=== PATIENT | female | born 1985 | race Caucasian/White ===

== ENCOUNTER 2017-09-30 16:25 | Inpatient (IN) ==
[2017-09-30] MEDS ORDERED: Naloxone 0.4 MG/ML INJ IVP PRN (19:38)
[2017-09-30 20:18] LABS: Hematocrit 21.3 % (35.3-44.9)
[2017-09-30] MEDS: 0.9 % Sodium Chloride 1,000 ML IVC SCH (23:03)
[2017-09-30 23:18] LABS: Protein/Creatinine Ratio,Urine 0.49 mg/mg (0.00-0.20)
[2017-10-01 02:16] LABS: Basophils % 0.2 %; Calcium 7.6 mg/dL (8.6-10.3); Eosinophils # 0.2 K/mcL (0.0-0.6); Eosinophils % 3.7 %; Hematocrit 20.8 % (35.3-44.9); Hemoglobin 6.6 g/dL (11.5-15.4); Immature Granulocytes % 0.5 % (0-4); Lymphocytes # 1.2 K/mcL (0.6-4.6); Lymphocytes % 28.5 %; Mean Corpuscular HGB Conc 31.7 g/dL (31.6-35.5); Mean Corpuscular Hemoglobin 25.2 pg (28.0-33.3); Mean Corpuscular Volume 79.4 fL (83.0-100.0); Monocytes # 0.3 K/mcL (0.0-1.3); Monocytes % 7.6 %; Neutrophils # 2.4 K/mcL (1.6-8.9); Platelet Count 190 K/mcL (140-400); Potassium 3.9 mEq/L (3.5-5.1); Red Blood Count 2.62 M/mcL (3.82-4.97); Red Cell Distribution Width 18.8 % (11.5-14.5); Segmented Neutrophils % 59.5 %
--- NOTE | 2017-10-01 03:07 | Event Note ---
Date of Encounter: 10/01/17 Time of Encounter: 03:05 Received critical report of the patient's Hgb of 6.6. No overt signs of hemorrhage. It is seen that she has had a gradual downward trend in her Hgb. Type and screen is ordered and consent obtained for the need for blood transfusion and she expressed willingness to proceed with these measures. She remains clinically and hemodynamically stable.
[2017-10-01] MEDS ORDERED: 0.9 % Sodium Chloride 250 ML ONE ×2 (04:42→11:34)
[2017-10-01] MEDS: *HR* Heparin 5,000 UNIT/ML VIAL SQ SCH ×2 (05:03→17:30)
--- NOTE | 2017-10-01 08:35 | Nephrology Consult Note ---
Date of Encounter: 10/01/17 Time of Encounter: 08:34 Assessment and Plan (1) Acute kidney injury Current Visit: Yes Status: Acute Patient with acute kidney injury of unclear etiology. Her clinical history is not suggestive of dehydration as she states she has been eating and drinking well and denies nausea, vomiting, or diarrhea.. Nonetheless, I recommend continue with the IV fluid for right now. Her workup has been ordered. This will include an evaluation for active lupus. A renal ultrasound has also been ordered. If patient's renal function does not improve pretty soon, she may need a renal biopsy. We will also check CKs. (2) Anemia Current Visit: Yes Status: Acute Patient with iron and vitamin B12 deficiency. She is status post transfusion. She may need intravenous iron. Recommend starting vitamin B-12 as well. We will checks for signs of hemolysis given her history of lupus. Qualifiers: Anemia type: iron deficiency Iron deficiency anemia type: unspecified iron deficiency Qualified Code(s): D50.9 - Iron deficiency anemia, unspecified (3) Elevated troponin Current Visit: Yes Status: Acute Unclear etiology. This is a new finding, but not associated with chest pain, or dyspnea. With a history of lupus I agree with an echocardiogram. If troponin elevates consider a cardiology consult. (4) Lupus Current Visit: Yes Status: Chronic Patient is a history of lupus and states her last flare was several months ago. She denies current rashes or arthralgias. She does give a history of headaches that have been occurring frequently recently. I will check for lupus activity. Qualifiers: Lupus erythematosus form: unspecified Qualified Code(s): L93.0 - Discoid lupus erythematosus History of Present Illness - Reason for Consult Consult date: 10/01/17 Acute Kidney Injury - Chief Complaint oxana - History of Present Illness Ms. Elena is a 31-year-old woman with a history of systemic lupus erythematosus. She presents after she found that she had accelerated hypertension at home. Upon admission she was found to have significant anemia along with acute kidney injury. She states she was asymptomatic with the exception of a headache at home. For the headache she has been taken ibuprofen 200 mg twice a day 3 times a week for the last 3-4 months. She denies nausea, vomiting, diarrhea. She also denies chest pain or dyspnea. She denies a history of renal involvement with her lupus. She states she gets infrequent flares that are usually manifested as a rash. She reports her last rash with a few months ago. She reports her [facility] and confirmed at [facility]. Past Med Surg Social Fam HX - Past Medical History Medical history: fibromyalgia, hypertension, migraine, other Additional medical history: lupus Psychiatric history: no psych history - Past Surgical History Surgical History: other Additional surgical history: pericardial effusion - Social History Smoking Status: Current every day smoker Packs per day: 1 Smokeless Tobacco Status: No Alcohol use: none Drug use: none - Family History Mother Living Status: Still Living Hx Family Endocrine Disorder: Yes (diabetes) Medications and Allergies predniSONE [PredniSONE] 10 mg PO BID #60 tablet 06/03/16 [Rx] Hydroxychloroquine [Plaquenuil] 200 mg PO BID 02/23/17 [History] Losartan/Hydrochlorothiazide [Losartan-Hctz 100-12.5 mg Tab] 1 tab PO DAILY 05/15 [History] amLODIPine [Norvasc] 5 mg PO DAILY 09/30/17 [History] 3 Allergy/AdvReac Type Severity Reaction Status Date / Time propoxyphene Allergy Hives Verified 09/30/17 14:34 [From Rosamaria-Gonzalo] Review of Systems All Systems: reviewed and no additional remarkable complaints except as stated ( As documented by history of present illness) Exam - Vital Signs Vital signs: Initial Vital Signs Temp Pulse Resp BP Pulse Ox 98.0 F 76 18 94/61 97 09/30/17 18:09 09/30/17 18:09 09/30/17 18:09 09/30/17 18:09 09/30/17 18:09 Vital Signs - Last 8 Hours Temp Pulse Resp BP Pulse Ox 10/01/17 07:44 98.4 F 66 14 132/88 10/01/17 07:20 98.6 F 68 16 130/87 99 10/01/17 05:17 98.6 F 68 14 136/86 10/01/17 05:16 98.6 F 68 14 136/86 98 10/01/17 04:48 98.5 F 74 16 116/79 10/01/17 04:39 98.5 F 74 16 116/79 98 Intake and Output 09/30/17 10/01/17 10/01/17 23:59 07:59 15:59 Intake Total 890 / 890 Output Total 120 / 120 Balance -120 / -120 890 / 890 Intake: IV Fluids 550 / 550 0.9 % Sodium Chloride 1,000 ML 550 / 550 @ 100 mls/hr IVC .Q10H SENDY Rx#: [id number] Blood Product 340 / 340 Rbcs Leuko Poor As-3 2nd Unit 340 / 340 [id number] Output: Urine 120 / 120 Other: # Voids 2 Weight 78.471 kg 79.4 kg Patient Weight 10/01/17 23:59 Weight 79.4 kg - General Appearance General appearance: well-developed, well-nourished EENT: ATNC Neck: supple Respiratory: clear (She initially has fine basilar crackles that clear with repeated inspiration.) Cardiology: no edema, regular rate, regular rhythm Gastrointestinal: normoactive bowel sounds, no tenderness Integumentary: no rash, warm and dry Neurologic: alert and oriented x3 Musculoskeletal: no cyanosis Psychiatric: mood/affect appropriate Results - Lab Results 10/01/17 08:56 10/01/17 01:39 Most recent lab results Calcium 7.6 mg/dL (8.6-10.3) L 10/01/17 01:39 Urine Creatinine 98 mg/dL 09/30/17 22:31 Ur Total Protein 24 Hr TNP 09/30/17 22:31 Urine Total Protein 48 mg/dL (1-14) H 09/30/17 22:31 Consult Discharge Plan - Plan Referrals: Christiano Esposito, [employer] [Primary Care Provider] -
[2017-10-01 09:37] LABS: Basophils % 0.2 %; Eosinophils # 0.2 K/mcL (0.0-0.6); Eosinophils % 2.9 %; Hematocrit 25.5 % (35.3-44.9); Hemoglobin 8.1 g/dL (11.5-15.4); Immature Granulocytes % 0.4 % (0-4); Lymphocytes # 1.1 K/mcL (0.6-4.6); Lymphocytes % 21.3 %; Mean Corpuscular HGB Conc 31.8 g/dL (31.6-35.5); Mean Corpuscular Hemoglobin 25.5 pg (28.0-33.3); Mean Corpuscular Volume 80.2 fL (83.0-100.0); Mean Platelet Volume 11.8 fL (9.4-12.4); Monocytes # 0.4 K/mcL (0.0-1.3); Monocytes % 7.6 %; Neutrophils # 3.5 K/mcL (1.6-8.9); Platelet Count 190 K/mcL (140-400); Red Blood Count 3.18 M/mcL (3.82-4.97); Red Cell Distribution Width 18.5 % (11.5-14.5); Segmented Neutrophils % 67.6 %
[2017-10-01 09:43] LABS: % Iron Saturation 5 % (15-50); Iron 14 mcg/dL (50-170); Transferrin 216 mg/dL (203-362)
[2017-10-01 10:11] LABS: Vitamin B12 283 pg/mL (250-1100)
[2017-10-01 10:14] LABS: Folate > 22.3 ng/mL (3.0-16.0)
--- NOTE | 2017-10-01 11:41 | Internal Med Progress Note ---
Hospitalist Progress Note - Encounter Date of Encounter: 10/01/17 Time of Encounter: 11:41 - Subjective Interval History: 31-year-old female with history of SLE noncompliant with home medications were presented with weakness and found to have worsening acute on chronic iron deficiency anemia, and acute kidney injury. She is on losartan and hydrochlorothiazide at home, denies any nausea vomiting or diarrhea, denies poor oral intake. Caurse of EL at this time is unknown. - Exam Vitals: Temp Pulse Resp BP Pulse Ox 98.4 F 66 14 132/88 99 10/01/17 07:44 10/01/17 07:44 10/01/17 07:44 10/01/17 07:44 10/01/17 07:20 Exam: VSS Gen: Speaks full sentences, not in distress HEENT: Classic butterfly rash on the face, Moist oral mucosa, not pale, anciteric Chest: CTAB, no added sounds Heart: S1, S2 only, no m/g/r Abdomen: Soft, not tender, no palpably enlarged organs Skin: No rash Psych: Normal affect Neuro: AAOX3, no focal deficits Extremities: No pedal edema, no clubbing or cyanosis - Assessment and Plan (1) Lupus Current Visit: Yes Status: Chronic Assessment and Plan: Continue home dose of prednisone Hold Plaquenil 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 (2) Anemia Current Visit: Yes Status: Acute Assessment and Plan: Patient with baseline hemoglobin of 11.2 as at 05/2016, reports onset of anemia 01/2017, said to be iron deficient by her primary care physician, compliant with iron supplementation by mouth at home. Presented with symptomatic anemia. Hemoglobin of 6.6 this morning. 2 units of red blood cells ordered. Hemodynamically stable. She also reports menorrhagia Follow anemia workup, monitor hemoglobin every 12 hours. (3) Acute kidney injury Current Visit: Yes Status: Acute Assessment and Plan: Likely prerenal nonoliguric due to poor perfusion, urine analysis with hematuria however, patient is on her period. Urine Analysis is also significant proteinuria. Retroperitoneal ultrasound done 1 week ago was unremarkable. Hold home doses of Losartan-HCTZ Hold Plaquenil Continue IVF hydration nephrology consulted (4) DVT prophylaxis Current Visit: Yes Status: Acute Assessment and Plan: SCDs Ambulate (5) Elevated troponin Current Visit: Yes Status: Acute Assessment and Plan: Troponin 0.08-0.07 NO chest pain Likely due to demand from anemia ECHO ordered, follow report - Time Spent with Patient Total time spent is greater than 50% in coordination of care (as documented) at patient's floor/unit and/or counseling patient: Plan of Care Discussed with: patient Internal Medicine: Result - Labs CBC & Chem 7: 10/01/17 08:56 10/01/17 01:39 Labs: Short CBC 09/30/17 10/01/17 10/01/17 Range/Units 19:58 01:39 08:56 WBC 4.1 L 5.2 (4.3-11.1) K/mcL Hgb 7.0 L 6.6 L 8.1 L D (11.5-15.4) g/dL Hct 21.3 L 20.8 L 25.5 L (35.3-44.9) % Plt Count 190 190 (140-400) K/mcL Neutrophils # 2.4 3.5 (1.6-8.9) K/mcL BMP 10/01/17 01:39 Sodium 142 Potassium 3.9 Chloride 115 H Carbon Dioxide 22 L BUN 40 H Creatinine 2.16 H Glucose 105 Calcium 7.6 L Cardiac Enzymes 09/30/17 10/01/17 10/01/17 Range/Units 19:58 01:39 08:56 Troponin I 0.08 H* 0.09 H* 0.07 H* (< 0.04) ng/mL Consult Discharge Plan - Plan Referrals: Christiano Esposito, [employer] HABILITATION SPECIALIST [Primary Care Provider] - (1) Lupus Qualifiers: Lupus erythematosus form: unspecified Qualified Code(s): L93.0 - Discoid lupus erythematosus (2) Anemia Qualifiers: Anemia type: iron deficiency Iron deficiency anemia type: unspecified iron deficiency Qualified Code(s): D50.9 - Iron deficiency anemia, unspecified
[2017-10-01] MEDS ORDERED: Ondansetron 4 MG/2 ML VIAL IVP PRN (12:52)
[2017-10-01] MEDS: 0.9 % Sodium Chloride 1,000 ML IVC SCH (14:12)
[2017-10-01 16:49] LABS: Hematocrit 28.1 % (35.3-44.9)
[2017-10-01 16:51] LABS: Hemoglobin 9.3 g/dL (11.5-15.4)
[2017-10-01 17:08] LABS: Bilirubin,Indirect 0.3 mg/dL (0.0-1.2); Bilirubin,Total 0.3 mg/dL (0.3-1.0)
[2017-10-01] MEDS: Acetaminophen 325 MG TABLET PO PRN (17:29)
[2017-10-01] MEDS: predniSONE 10 MG TABLET PO SCH (19:29)
[2017-10-02] MEDS: Acetaminophen 325 MG TABLET PO PRN ×2 (03:00→09:25)
[2017-10-02] MEDS: *HR* Heparin 5,000 UNIT/ML VIAL SQ SCH (05:13)
[2017-10-02 06:22] LABS: Basophils % 0.2 %; Eosinophils % 0.4 %; Hematocrit 27.7 % (35.3-44.9); Immature Granulocytes % 0.2 % (0-4); Lymphocytes # 0.8 K/mcL (0.6-4.6); Mean Corpuscular HGB Conc 32.5 g/dL (31.6-35.5); Mean Corpuscular Hemoglobin 26.3 pg (28.0-33.3); Mean Platelet Volume 12.3 fL (9.4-12.4); Monocytes # 0.3 K/mcL (0.0-1.3); Monocytes % 6.8 %; Neutrophils # 3.4 K/mcL (1.6-8.9); Platelet Count 192 K/mcL (140-400); Red Blood Count 3.42 M/mcL (3.82-4.97); Segmented Neutrophils % 74.4 %
[2017-10-02 08:02] LABS: BUN/Creatinine Ratio 17 (6-26); Blood Urea Nitrogen 20 mg/dL (6-20); Calcium 7.8 mg/dL (8.6-10.3); Carbon Dioxide 20 mEq/L (23-29); Chloride 112 mEq/L (98-107); Glucose 89 mg/dL (70-105); Osmolality,Calculated 292 (280-300); Potassium 4.2 mEq/L (3.5-5.1); Sodium 140 mEq/L (136-145); eGFR For Non-African Americans 54 (> 60)
[2017-10-02] MEDS ORDERED: amLODIPine 5 MG TABLET PO SCH (09:00)
[2017-10-02] MEDS: predniSONE 10 MG TABLET PO SCH (09:25)
--- NOTE | 2017-10-02 10:28 | Discharge Summary ---
- NOTES TO OUTPATIENT PROVIDER Notes to Outpatient Provider: Recommend CBC and BMP within 1-3 days Orders not resulted at time of discharge: Pending orders 10/01/17 16:01 CK Isoenzymes Routine Complement Component 3 DAILY Complement Component 4 DAILY Haptoglobin Routine 10/02/17 04:00 Urinalysis reflex Microscopic [URIN] AM 0400 Urine Protein Creat Ratio Orange [UCHEM] AM 0400 10/02/17 05:30 QUINTIN IgG KATH rflx IFA AM 0400 Anti-DNA DS, IgG with reflex AM 0400 Date of Encounter: 10/02/17 Time of Encounter: 10:27 - Discharge Diagnosis (1) Anemia Priority: Primary Status: Acute Assessment and Plan: Patient with baseline hemoglobin of 11.2 as of 05/2016. Hx iron deficiency anemia per her PCP and on oral iron supplements at home area patient reports compliance. No active bleeding. Hgb 6.6 on admission. Received 2 units PRBC with improvement in Hgb. Hgb 9 at discharge. Cont home iron supplements. Recommend repeat CBC with PCP within 1-3 days. Qualifiers: Anemia type: iron deficiency Iron deficiency anemia type: unspecified iron deficiency Qualified Code(s): D50.9 - Iron deficiency anemia, unspecified (2) Acute kidney injury Priority: Primary Status: Acute Assessment and Plan: Likely prerenal nonoliguric with poor perfusion secondary to anemia. UA shows hematuria however patient currently on menstrual cycle. Renal US unremarkable. Renal function normalized with IV fluids. Nephrology followed while inpatient and will need to follow-up with nephrology outpatient. Discussed with Dr. Vickers (Nephrology) and okay to resume home plaque well, losartan and HCTZ at discharge. Recommend repeat BMP within 1 week with PCP. (3) Elevated troponin Priority: Primary Status: Acute Assessment and Plan: Troponin peaked at .08 and trended down. Asymptomatic, denied chest pain. No EKG changes. Suspect multifactorial with AK I and demand ischemia from anemia. TTE with EF 60%, no valvular dysfunction, no wall motion abnormalities. No further cardiac workup indicated at this time. (4) Lupus Priority: Secondary Status: Chronic Assessment and Plan: per hx. 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 Cont home prednisone and Plaquenil. Lupus work-up ordered per Nephrology and pending at time of discharge. Follow up outpatient with PCP and/or rheumatology Qualifiers: Lupus erythematosus form: unspecified Qualified Code(s): L93.0 - Discoid lupus erythematosus Hospital course: Please see assessment and plan for Hospital course Discharge discussed with: patient (Seen and examined at bedside. Patient is new to me, information obtained from chart review and patient report. Patient says she feels back to baseline and once to go home today. No chest pain or shortness of breath. No active bleeding. Advised her to follow-up with her PCP within 1-3 days for follow-up blood work.) - Time Spent with Patient Total time spent providing and/or coordinating discharge services: - Discharge Medications Home Medications: predniSONE [PredniSONE] 10 mg PO BID #60 tablet 06/03/16 [Rx] Hydroxychloroquine [Plaquenuil] 200 mg PO BID 02/23/17 [History] Losartan/Hydrochlorothiazide [Losartan-Hctz 100-12.5 mg Tab] 1 tab PO DAILY 05/15 [History] amLODIPine [Norvasc] 5 mg PO DAILY 09/30/17 [History] Allergies/Adverse Reactions: 3 Allergy/AdvReac Type Severity Reaction Status Date / Time propoxyphene Allergy Hives Verified 09/30/17 14:34 [From Darvocet-N] Date of admission: 09/30/17 19:38 Primary care physician: Christiano Esposito CNP Consults: 09/30/17 19:37 Consult to Nephrology [CONS] Routine Consulting Provider: [facility] [place]/FRANCK/CHARLEEN/KERRY Reason for Consult: Acute renal failure Call Completed: Yes Discharging clinician: Maria E Barron Anticipated date of discharge: 10/02/17 - Constitutional Vitals: Temp Pulse Resp BP Pulse Ox 97.7 F 78 14 119/71 99 10/02/17 07:01 10/02/17 07:01 10/02/17 07:01 10/02/17 07:01 10/02/17 07:01 General appearance: Present: A&O X 3, pleasant, no acute distress - Head Head exam: Present: atraumatic, normocephalic - Eye Eye exam: Present: PERRL, conjuntiva pink, sclera anicteric Pupils: Present: PERRL - Neck Neck exam general surgery: Present: supple, trachea midline. Absent: lymphadenopathy - Respiratory Respiratory exam: Present: CTAB. Absent: accessory muscle use, rales, rhonchi, wheezes - Cardiovascular Cardiovascular exam: Present: RRR, +S1, +S2. Absent: diastolic murmur, gallop, rubs, systolic murmur - GI/Abdominal GI/Abdominal exam: Present: normal bowel sounds, soft, no peritoneal signs. Absent: distended, tenderness - Extremities Exam Extremities exam: Present: warm, radial pulses palpable and symmetrical. Absent : calf tenderness, cyanotic, pedal edema - Neurological Exam Neurological exam: Present: CN II-XII intact, oriented X3, no focal deficits. Absent: pronater drift, facial droop, speech deficit - Skin Skin exam: Present: dry, intact - Patient Status Disposition: Home, Self-Care Condition: Good Functional capacity at discharge: independent ambulation Overall status at discharge: patient is back to baseline - Discharge Instructions Instructions: Iron Deficiency Anemia (DC), Lupus Erythematosus (DC), Acute Kidney Injury (DC) Follow Up With: Christiano Esposito CNP [Primary Care Provider] - Antione Vickers MD [Partnered Physician] - (Please call for follow-up appt within 4 weeks) - Diet and Activity Activity: increase activity as tolerated Diet: advance to your usual diet
[2017-10-02 11:24] VITALS: BP 152/93
[2017-10-04 14:55] LABS: Complement Component 3 88 mg/dL (88-201); Complement Component 4 19 mg/dL (10-40)
[2017-10-05 08:24] LABS: ANA IgG by ELISA DETECTED (None Detected)
[2017-10-05 19:35] LABS: CK-MB (CK isoenzymes) 0 % (0-4); CK-MM (CK-isoenzymes) 100 % (96-100)
[2017-10-06 07:48] LABS: CK Total (Ck Isoenzymes) 45 U/L (20-180); CK-BB (CK isoenzymes) 0 % (0-0)
[2017-10-07 14:12] LABS: ANA IgG IFA Titer >1:2560 (<1:80)
--- NOTE | 2017-10-25 08:03 | Internal Med History&Physical ---
Date of Encounter: 10/25/17 Time of Encounter: 11:00 Internal Medicine - H&P: HPI Chief complaint: Headache Admitted From: Home History of present illness: Patient is a 32-year-old female with past medical history significant for SLE and hypertension who presents from the [facility]. Patient presented to [facility] due to migraine headaches but was found to have creatinine of 2.78 with a GFR of 20. In addition patient was also found to anemic with a hemoglobin of 7.4. Patient was also found to have elevated troponin of 0.06. She was transferred to [facility] for further workup and evaluation of acute renal failure, anemia and elevated troponin. Past Med Surg Social Fam HX - Past Medical History Medical history: fibromyalgia, hypertension, migraine, other Additional medical history: lupus Psychiatric history: no psych history - Past Surgical History Surgical History: other Additional surgical history: pericardial effusion - Social History Smoking Status: Current every day smoker Packs per day: 1 Smokeless Tobacco Status: No Alcohol use: none Drug use: none - Family History Mother Living Status: Still Living Hx Family Endocrine Disorder: Yes (diabetes) Internal Medicine - H&P: Meds predniSONE [PredniSONE] 10 mg PO BID #60 tablet 06/03/16 [Rx] Hydroxychloroquine [Plaquenuil] 200 mg PO BID 02/23/17 [History] Losartan/Hydrochlorothiazide [Losartan-Hctz 100-12.5 mg Tab] 1 tab PO DAILY 05/15 [History] amLODIPine [Norvasc] 5 mg PO DAILY 09/30/17 [History] 3 Allergy/AdvReac Type Severity Reaction Status Date / Time propoxyphene Allergy Hives Verified 09/30/17 14:34 [From Rosamaria-Gonzalo] All Systems PM: A 10-system review of systems was performed and is negative for pertinent findings except as documented above in the HPI. - Constitutional Vitals: Temp Pulse Resp BP Pulse Ox 98.3 F 67 14 152/93 98 10/02/17 11:23 10/02/17 11:23 10/02/17 11:23 10/02/17 11:23 10/02/17 11:23 General appearance: Present: A&O X 3, pleasant, no acute distress Exam: nad - Eye Eye exam: Present: normal appearance - ENT ENT exam: Present: mucous membranes moist - Respiratory Respiratory exam: Present: CTAB. Absent: accessory muscle use, rales, rhonchi, wheezes - Cardiovascular Cardiovascular exam: Present: RRR, +S1, +S2. Absent: diastolic murmur, gallop, rubs, systolic murmur - GI/Abdominal GI/Abdominal exam: Present: normal bowel sounds, soft, no peritoneal signs. Absent: distended, tenderness - Extremities Exam Extremities exam: Absent: pedal edema - Neurological Exam Neurological exam: Present: oriented X3 - Psychiatric Psychiatric exam: Present: normal mood - Skin Skin exam: Present: normal color Internal Med - H&P Results - Labs CBC & Chem 7: 10/02/17 05:30 10/02/17 05:30 - Impressions ITS Impressions Echocardiogram 10/01/17 08:13 Impressions: LVEF 60-65%. No evidence of pulmonary hypertension. Normal left ventricular diastolic function. No significant valvular dysfunction. Left Ventricular Wall Motion: Rest Echo Findings All wall segments showed normal motion. Findings: Study Quality * Technically adequate exam. Right Ventricle * Normal right ventricular structure and function. Right Atrium * Normal right atrial size. Interatrial Septum * Lipomatous interatrial septum. * Aneurysmal interatrial septal. Aorta * Normally sized aortic root. Pericardium * The pericardium appears normal. Tricuspid Valve * Trace tricuspid regurgitation. * No tricuspid stenosis. * Estimated RVSP is 25 mmHg. * Estimated RA pressure is 0-5 mmHg. * No evidence of pulmonary hypertension. Left Atrium * Normal left atrial size. Mitral Valve * Normal mitral valve structure. * No mitral stenosis. * Mild mitral regurgitation. Aortic Valve * Normal aortic valve structure. * No aortic stenosis. * Trace aortic regurgitation. ECG Findings * Normal sinus rhythm. Left Ventricle * LVEF 60-65%. * Normal left ventricular diastolic function. Retroperitoneum Ultrasound 10/01/17 15:32 IMPRESSION: Normal sonographic appearance of the kidneys. D/ / Kb Noe MD / Kb Noe MD Interpreting Provider: Kb Noe MD - Assessment and plan (1) Acute kidney injury Status: Acute Assessment and plan: Patient found to have creatinine of 2.78 with a GFR of 20. Will initiate IV fluids and monitor creatinine Nephrology consulted and appreciate recommendations (2) Anemia Status: Acute Assessment and plan: Patient was also found to anemic with a hemoglobin of 7.4 Will continue to monitor serial H&H's Qualifiers: Anemia type: iron deficiency Iron deficiency anemia type: unspecified iron deficiency Qualified Code(s): D50.9 - Iron deficiency anemia, unspecified (3) Elevated troponin Status: Acute Assessment and plan: Patient also found to have elevated troponin of 0.06 She has a symptomatic Will trend serial cardiac biomarkers and monitor on telemetry (4) Headache Status: Acute Assessment and plan: Patient reports of chronic migraine headaches Qualifiers: Intractability: not intractable Qualified Code(s): R51 - Headache - Time Spent With Patient Total time spent is greater than 50% in coordination of care (as documented) at patient's floor/unit and/or counseling patient:
== END 2017-10-02 12:15 | disposition home or self-care (01) | DRG 663 ==
LOC: 2ANU
PROVIDERS: ADMIT Hospitalist; ATTEND Hospitalist